=== PATIENT | female | born 1995 | race Caucasian/White ===

== ENCOUNTER → 2018-10-28 15:43 | Outpatient (CLI) | payer BC, SELFPAY ==
--- NOTE | 2018-10-28 15:48 | MR_ITS ---
MR knee RT wo con HISTORY: Right knee pain with effusion. Pain medially. Knot on knee/leg ITS.REASON: PAIN IN RT KNEE, EFFUSION RT KNEE ORDERING PHYSICIAN: Remington Winters MD PATIENT AGE: 23 years Comparison: None TECHNIQUE: Standard multiplanar multiecho sequences are performed without contrast. FINDINGS: The posterior cruciate ligament has an unremarkable appearance. There is slight increased T2 signal of the distal aspect of the ACL with sparsity of the fibers which could be due to prior sprain or old injury. No acute tear evident. The Collateral ligaments, patellar tendon, and quadriceps tendon appear intact. No obvious meniscal tear. The patellar cartilage is preserved. No bone bruise or fractures. There is small joint effusion. No bone bruise. No significant arthritic change. A marker is placed along the medial aspect of the proximal tibia. No soft tissue abnormalities/lesions are apparent at this region. IMPRESSION: 1. Sparsity of the ACL fibers with slight increase in T2 signal which may represent a sprain or old injury. No acute complete tear evident 2. Small knee joint effusion. 3. Otherwise negative MRI of the right knee
== END ==
PROVIDERS: PCP Family Medicine; Visit Provider Family Medicine
DX: M25.461 Effusion, right knee; M25.561 Pain in right knee; S83.206A Unspecified tear of unspecified meniscus, current injury, right knee, initial encounter
CPT/HCPCS: 73721

== ENCOUNTER 2019-04-24 21:08 | Emergency (ER) | payer BC, SELFPAY ==
[2019-04-24 21:14] VITALS: BP 117/76; PULSE 98; RESP 18; TEMP 36.7; O2SAT 99; BMI 20.9
[2019-04-24 21:58] LABS: Basophils % 0.2 % (0.1-2.0); Eosinophils % 0.2 % (0.1-12.0); Hematocrit 43.3 % (37.0-47.0); Lymphocytes # 1.4 K/mm3 (0.7-4.5); Mean Corpuscular HGB Conc 34.7 g/dL (31.8-35.4); Mean Corpuscular Hemoglobin 27.9 pg (27.0-31.2); Mean Corpuscular Volume 80.5 fl (81-99); Mean Platelet Volume 7.3 fl (7.4-10.4); Monocytes # 0.3 K/mm3 (0.1-1.0); Monocytes % 2.4 % (1.7-9.3); Neutrophils # 12.1 K/mm3 (1.8-7.8); Neutrophils % 87.2 % (37.0-80.0); Platelet Count 251 K/mm3 (142-424); Red Blood Count 5.38 M/mm3 (4.20-5.40); Red Cell Distribution Width 11.5 % (11.5-17.5); White Blood Count 13.9 K/mm3 (4.8-10.8)
[2019-04-24 22:00] LABS: MANUAL DIFFERENTIAL MANUAL DIFFERENTIAL (MANUAL DIFF)
--- NOTE | 2019-04-24 22:09 | HMH.EDPREG ---
ED Disposition Clinical Impression: Miscarriage Disposition: Home, Self-Care Condition on Discharge: Good Referrals: Remington Winters MD [Primary Care Provider] - Time of Disposition: 23:47 - Critical Care Critical Care Time: No Attestation: On 04/24/19, the high probability of a clinically significant, sudden or life threatening deterioration of the following system(s) required my full and direct attention, intervention and personal management. The time I documented below is in addition to time spent performing reported procedures but includes the following listed in this critical care notation. Medical Decision Making - Medical Records Medical records reviewed: Yes: I reviewed the patient's medical records. - Darius Inquiry Pt receiving controlled substance: No Darius was queried for this patient: No Vital Signs: 04/24/19 21:14 04/24/19 22:22 04/24/19 23:13 Temperature 98.1 F Temperature Source Oral Pulse Rate [Right Brachial] 98 H 78 68 Respiratory Rate 18 18 16 Blood Pressure [Right Arm] 117/76 118/63 128/70 Blood Pressure Mean [Right Arm] 89 81 89 Blood Pressure Source [Right Arm] Automatic Cuff Automatic Cuff Automatic Cuff Blood Pressure Position [Right Arm] Sitting Sitting Sitting 02 Sat by Pulse Oximetry 99 99 100 Oxygen Delivery Method Room Air Room Air Room Air - Lab Data Lab results reviewed: Yes: I reviewed the patient's lab results. Lab Results 04/24/19 21:47: WBC 13.9 H, RBC 5.38, Hgb 15.0, Hct 43.3, MCV 80.5 L, MCH 27.9, MCHC 34.7, RDW 11.5, Plt Count 251, MPV 7.3 L, Neut % (Auto) 87.2 H, Lymph % (Auto) 10.0, Sunflower % (Auto) 2.4, Eos % (Auto) 0.2, Baso % (Auto) 0.2, Neut # (Auto) 12.1 H, Lymph # (Auto) 1.4, Sunflower # (Auto) 0.3, Eos # (Auto) 0.0, Baso # (Auto) 0.0, Total Counted 100, Neutrophils % (Manual) 90 H, Lymphocytes % (Manual) 7 L, Monocytes % (Manual) 3, Platelet Estimate Normal, RBC Morphology Normal 04/24/19 21:47: Sodium 135 L, Potassium 3.8, Chloride 100, Carbon Dioxide 23, Anion Gap 15.8 H, BUN 10, Creatinine 0.85, Estimated Creat Clear 95, Estimated GFR 82, Est GFR ( Amer) 99, Glucose 109 H, Calcium 9.3, Total Bilirubin 0.8, AST 17, ALT 22, Alkaline Phosphatase 74, Total Protein 7.4, Albumin 4.5, Globulin 2.9, Albumin/Globulin Ratio 1.6 Result diagrams: 04/24/19 21:47 04/24/19 21:47 Orders (Tests/Meds): ED MEDICATIONS Generic Name Dose Route Start Last Admin Trade Name Freq PRN Reason Stop Dose Admin Sodium Chloride 1,000 mls @ 999 mls/hr 04/24/19 22:00 04/24/19 21:49 Sod Chlor 0.9% 1000ml Bag IV 04/24/19 23:00 999 mls/hr .Q1H1M [place] Administration Discontinued Medications Generic Name Dose Route Start Last Admin Trade Name Freq PRN Reason Stop Dose Admin Acetaminophen 1,000 mg 04/24/19 21:24 04/24/19 21:50 Tylenol 500mg Tablet PO 04/24/19 21:25 Not Given ONCE ONE Acetaminophen/Codeine Phosphate 1 flavio 04/24/19 23:44 Acetaminophen W/Codeine #3 Take Home Pack (6) PO 04/24/19 23:45 ONCE ONE Ibuprofen 400 mg 04/24/19 21:24 04/24/19 21:50 Motrin 400mg Tablet PO 04/24/19 21:25 Not Given ONCE ONE Ketorolac Tromethamine 30 mg 04/24/19 21:49 04/24/19 21:49 Toradol 30mg/Ml Vial IV 04/24/19 21:50 30 mg ONCE ONE Administration Morphine Sulfate 4 mg 04/24/19 22:37 04/24/19 22:38 Morphine 4mg/Ml Syringe IV 04/24/19 22:38 4 mg ONCE ONE Administration Ondansetron HCl 4 mg 04/24/19 21:49 04/24/19 21:49 Zofran 4mg/2ml Vial IV 04/24/19 21:50 4 mg ONCE ONE Administration Ondansetron HCl 4 mg 04/24/19 22:37 04/24/19 22:38 Zofran 4mg/2ml Vial IV 04/24/19 22:38 4 mg ONCE ONE Administration Promethazine HCl 1 flavio 04/24/19 23:44 Phenergan 25mg Tablet Take Home Pack (10) PO 04/24/19 23:45 ONCE ONE HPI - General Chief complaint: OB/Uterine Contractions Stated complaint: Possible miscarrage 12 wk Time Seen by Provider: 04/24/19 22:11 Mode of Arrival: F
[2019-04-24 22:10] LABS: Alanine Aminotransferase 22 U/L (12-78); Albumin Level 4.5 gm/dL (3.4-5.0); Albumin/Globulin Ratio 1.6 (1.1-1.8); Alkaline Phosphatase 74 U/L (46-116); Anion Gap 15.8 mEq/L (5-15); Aspartate Amino Transferase 17 U/L (15-37); Bilirubin,Total 0.8 mg/dL (0.2-1.0); Blood Urea Nitrogen 10 mg/dL (7-18); Calcium 9.3 mg/dL (8.5-10.1); Carbon Dioxide 23 mmol/L (21.0-32.0); Chloride 100 mmol/L (98-107); Creatinine Clearance Estimated 95 mL/min (50-200); Creatinine,Serum 0.85 mg/dL (0.55-1.02); Estimated Glomerular Filt Rate 82 ml/min (>60); GFR (African American) 99 ML/MIN (>60); Globulin 2.9 gm/dl (1.3-3.2); Glucose 109 mg/dL (74-106); Potassium 3.8 mmoL/L (3.5-5.1); Sodium 135 mmol/L (136-145); Total Protein,Serum 7.4 gm/dL (6.4-8.2)
[2019-04-24 22:19] LABS: Lymphocytes % 7 % (10-50); Monocytes % 3 % (2-9); Neutrophils % 90 % (42-76); Total Cells Counted 100
[2019-04-24 22:20] LABS: Platelet Estimate Normal; RBC Morphology Normal
[2019-04-24 22:22] VITALS: BP 118/63; PULSE 78; RESP 18; O2SAT 99
--- NOTE | 2019-04-24 22:23 | ED_ITS ---
ED Disposition Clinical Impression: Miscarriage Disposition: Home, Self-Care Condition on Discharge: Good Referrals: Remington Winters MD [Primary Care Provider] - Time of Disposition: 23:47 - Critical Care Critical Care Time: No Attestation: On 04/24/19, the high probability of a clinically significant, sudden or life threatening deterioration of the following system(s) required my full and direct attention, intervention and personal management. The time I documented below is in addition to time spent performing reported procedures but includes the following listed in this critical care notation. Medical Decision Making - Medical Records Medical records reviewed: Yes: I reviewed the patient's medical records. - Darius Inquiry Pt receiving controlled substance: No Darius was queried for this patient: No Vital Signs: 04/24/19 21:14 04/24/19 22:22 04/24/19 23:13 Temperature 98.1 F Temperature Source Oral Pulse Rate [Right Brachial] 98 H 78 68 Respiratory Rate 18 18 16 Blood Pressure [Right Arm] 117/76 118/63 128/70 Blood Pressure Mean [Right Arm] 89 81 89 Blood Pressure Source [Right Arm] Automatic Cuff Automatic Cuff Automatic Cuff Blood Pressure Position [Right Arm] Sitting Sitting Sitting 02 Sat by Pulse Oximetry 99 99 100 Oxygen Delivery Method Room Air Room Air Room Air - Lab Data Lab results reviewed: Yes: I reviewed the patient's lab results. Lab Results 04/24/19 21:47: WBC 13.9 H, RBC 5.38, Hgb 15.0, Hct 43.3, MCV 80.5 L, MCH 27.9, MCHC 34.7, RDW 11.5, Plt Count 251, MPV 7.3 L, Neut % (Auto) 87.2 H, Lymph % (Auto) 10.0, Kingfisher % (Auto) 2.4, Eos % (Auto) 0.2, Baso % (Auto) 0.2, Neut # (Auto) 12.1 H, Lymph # (Auto) 1.4, Kingfisher # (Auto) 0.3, Eos # (Auto) 0.0, Baso # (Auto) 0.0, Total Counted 100, Neutrophils % (Manual) 90 H, Lymphocytes % (Manual) 7 L, Monocytes % (Manual) 3, Platelet Estimate Normal, RBC Morphology Normal 04/24/19 21:47: Sodium 135 L, Potassium 3.8, Chloride 100, Carbon Dioxide 23, A nion Gap 15.8 H, BUN 10, Creatinine 0.85, Estimated Creat Clear 95, Estimated GFR 82, Est GFR ( Amer) 99, Glucose 109 H, Calcium 9.3, Total Bilirubin 0.8, AST 17, ALT 22, Alkaline Phosphatase 74, Total Protein 7.4, Albumin 4.5, Globulin 2.9, Albumin/Globulin Ratio 1.6 Result diagrams: 04/24/19 21:47 04/24/19 21:47 Orders (Tests/Meds): ED MEDICATIONS Generic Name Dose Route Start Last Admin Trade Name Freq PRN Reason Stop Dose Admin Sodium Chloride 1,000 mls @ 999 mls/hr 04/24/19 22:00 04/24/19 21:49 Sod Chlor 0.9% 1000ml Bag IV 04/24/19 23:00 999 mls/hr .Q1H1M [place] Administration Discontinued Medications Generic Name Dose Route Start Last Admin Trade Name Freq PRN Reason Stop Dose Admin Acetaminophen 1,000 mg 04/24/19 21:24 04/24/19 21:50 Tylenol 500mg Tablet PO 04/24/19 21:25 Not Given ONCE ONE Acetaminophen/Codeine Phosphate 1 flavio 04/24/19 23:44 Acetaminophen W/Codeine #3 Take Home Pack (6) PO 04/24/19 23:45 ONCE ONE Ibuprofen 400 mg 04/24/19 21:24 04/24/19 21:50 Motrin 400mg Tablet PO 04/24/19 21:25 Not Given ONCE ONE Ketorolac Tromethamine 30 mg 04/24/19 21:49 04/24/19 21:49
[2019-04-24 23:13] VITALS: BP 128/70; PULSE 68; RESP 16; O2SAT 100
[2019-04-25 00:03] VITALS: BP 122/68; PULSE 63; RESP 16; TEMP 36.7; O2SAT 100
== END 2019-04-25 00:09 | disposition home or self-care (01) ==
PROVIDERS: Emergency Provider Emergency Medicine; PCP Family Medicine
DX: O03.9 Complete or unspecified spontaneous abortion without complication (principal)
CPT/HCPCS: 80053; 85007; 85025; 96365; 96375; 96376; 99283; J2405

== ENCOUNTER → 2021-11-23 20:52 | Outpatient (CLI) | payer OTHER, SELFPAY ==
[2021-11-23 20:55] LABS: Adenovirus,PCR Not Detected (NotDetected); Bordetella Pertussis Not Detected (NotDetected); Chlamydophila Pneumoniae, PCR Not Detected (NotDetected); Coronavirus 19, PCR Not Detected (NotDetected); Coronavirus 229E Not Detected (NotDetected); Coronavirus NL63 Not Detected (NotDetected); Coronavirus OC43 Not Detected (NotDetected); Coronovirus HKU1,PCR Not Detected (NotDetected); Human Metapneumovirus Not Detected (NotDetected); Influenza A, PCR Not Detected (NotDetected); Influenza AH1, 2009 Not Detected (NotDetected); Influenza AH1, PCR Not Detected (NotDetected); Influenza AH3,PCR Not Detected (NotDetected); Influenza B, PCR Not Detected (NotDetected); Mycoplasma Pneumoniae, PCR Not Detected (NotDetected); Parainfluenza 1, PCR Not Detected (NotDetected); Parainfluenza 2, PCR Not Detected (NotDetected); Parainfluenza 3, PCR Not Detected (NotDetected); Parainfluenza 4, PCR Not Detected (NotDetected); Rhinovirus/Enterovirus Not Detected (NotDetected)
[2021-11-23 22:49] LABS: Respiratory Syncytial Virus Detected (NotDetected)
== END ==
PROVIDERS: Visit Provider Nurse Practitioner Family
DX: Z20.822 Contact with and (suspected) exposure to COVID-19 (principal); B97.4 Respiratory syncytial virus as the cause of diseases classified elsewhere
CPT/HCPCS: 87581; 87632; 87798; C9803; U0003; U0005

== ENCOUNTER → 2022-02-07 14:00 | Outpatient (CLI) | payer OTHER, SELFPAY | PROVIDERS: PCP Physician Assistant; Visit Provider Physician Assistant | DX: R00.2 Palpitations (principal) | CPT/HCPCS: 93225; 93226 ==

== ENCOUNTER → 2022-02-07 15:18 | Outpatient (CLI) | payer OTHER, SELFPAY ==
[2022-02-07 17:50] LABS: Basophils # 0.1 K/mm3 (0-0.2); Eosinophils # 0.1 K/mm3 (0.0-0.4); Eosinophils % 1.7 % (0.1-12.0); Hematocrit 38.1 % (37.0-47.0); Hemoglobin 12.1 g/dL (12.2-16.2); Lymphocytes % 35.4 % (10-50); Mean Corpuscular HGB Conc 31.8 g/dL (31.8-35.4); Mean Corpuscular Hemoglobin 26.9 pg (27.0-31.2); Mean Corpuscular Volume 84.8 fl (81-99); Mean Platelet Volume 9.4 fl (7.4-10.4); Monocytes # 0.3 K/mm3 (0.1-1.0); Monocytes % 4.4 % (1.7-9.3); Neutrophils # 3.2 K/mm3 (1.8-7.8); Neutrophils % 57.5 % (37.0-80.0); Platelet Count 295 K/mm3 (142-424); Red Blood Count 4.49 M/mm3 (4.20-5.40); Red Cell Distribution Width 13.6 % (11.5-17.5); White Blood Count 5.6 K/mm3 (4.8-10.8)
[2022-02-07 18:25] LABS: Alanine Aminotransferase 12 U/L (12-78); Albumin Level 4.6 g/dl (3.5-5.0); Albumin/Globulin Ratio 1.9 (1.1-1.8); Alkaline Phosphatase 74 U/L (38-126); Aspartate Amino Transferase 22 U/L (14-36); Bilirubin,Total 0.5 mg/dl (0.2-1.3); Blood Urea Nitrogen 13 mg/dl (7-17); Calcium 9.2 mg/dl (8.4-10.2); Carbon Dioxide 26 mmol/L (22.0-30.0); Chloride 105 mmol/L (98-107); Chol/HDL Ratio 2.9 (1-3.5); Cholesterol 191 mg/dl (140-200); Estimated Glomerular Filt Rate 101 ml/min (>60); GFR (African American) 122 ML/MIN (>60); Globulin 2.4 g/dL (1.3-3.2); Glucose 109 mg/dl (74-100); HDL Cholesterol 66 mg/dl (40-60); Sodium 138 mmol/L (136-145); Triglycerides 62 mg/dl (30-150); VLDL Cholesterol 12 mg/dL (0-40)
[2022-02-07 18:42] LABS: 25-OH Vitamin D, Total 49.6 ng/mL (30-100)
[2022-02-07 18:43] LABS: Direct LDL Cholesterol 95.74 mg/dL (100-129)
== END ==
PROVIDERS: Visit Provider Physician Assistant
DX: Z00.00 Encounter for general adult medical examination without abnormal findings (principal); R07.89 Other chest pain; R00.2 Palpitations
CPT/HCPCS: 80053; 80061; 82306; 83036; 84443; 85025

== ENCOUNTER → 2022-05-31 06:09 | Outpatient (CLI) | payer OTHER, SELFPAY | PROVIDERS: PCP Nurse Practitioner Family; Visit Provider Nurse Practitioner Family | DX: N39.0 Urinary tract infection, site not specified (principal) | CPT/HCPCS: 87086 ==

== ENCOUNTER → 2022-10-04 14:45 | Outpatient (CLI) | payer OTHER, SELFPAY ==
--- NOTE | 2022-10-04 14:52 | XR_ITS ---
FINAL REPORT TECHNIQUE: Chest PA & Lateral CLINICAL HISTORY: Acute cough FINDINGS: 2 views of the chest were performed. The heart size is normal. The mediastinum is within normal limits. There is no acute cardiopulmonary process. There are no pleural effusions. There is no pneumothorax. The bony thorax appears intact. IMPRESSION: No acute cardiopulmonary process. Reviewed, Interpreted and Dictated by Velasquez Steiner MD Transcribed by Danielle Malik Authenticated and [facility]
== END ==
PROVIDERS: PCP Physician Assistant; Visit Provider Physician Assistant
DX: R05.9 Cough, unspecified (principal); Z90.710 Acquired absence of both cervix and uterus
CPT/HCPCS: 71046

== ENCOUNTER → 2023-03-08 13:44 | Outpatient (CLI) | payer OTHER, SELFPAY | PROVIDERS: PCP Nurse Practitioner Family; Visit Provider Nurse Practitioner Family | DX: M79.641 Pain in right hand (principal); M79.89 Other specified soft tissue disorders | CPT/HCPCS: 87070; 87205 ==

== ENCOUNTER → 2023-04-25 08:33 | Outpatient (CLI) | payer OTHER, SELFPAY ==
[2023-04-25 09:20] LABS: Basophils % 0.8 % (0.1-2.0); Eosinophils # 0.1 K/mm3 (0.0-0.4); Eosinophils % 2.3 % (0.1-12.0); Hematocrit 43.3 % (37.0-47.0); Lymphocytes # 1.5 K/mm3 (0.7-4.5); Lymphocytes % 30.9 % (10-50); Mean Corpuscular HGB Conc 32.3 g/dL (31.8-35.4); Mean Corpuscular Hemoglobin 27.3 pg (27.0-31.2); Mean Corpuscular Volume 84.5 fl (81-99); Mean Platelet Volume 8.3 fl (7.4-10.4); Monocytes # 0.2 K/mm3 (0.1-1.0); Monocytes % 4.2 % (1.7-9.3); Neutrophils % 61.9 % (37.0-80.0); Platelet Count 230 K/mm3 (142-424); Red Blood Count 5.13 M/mm3 (4.20-5.40); Red Cell Distribution Width 12.9 % (11.5-17.5); White Blood Count 4.8 K/mm3 (4.8-10.8)
[2023-04-25 09:33] LABS: Hemoglobin A1C 5.2 % (4.0-6.0)
[2023-04-25 09:47] LABS: Alanine Aminotransferase 12 U/L (12-78); Albumin Level 4.3 g/dl (3.5-5.0); Alkaline Phosphatase 65 U/L (38-126); Anion Gap 13.2 mEq/L (5-15); Aspartate Amino Transferase 23 U/L (14-36); Bilirubin,Total 0.7 mg/dl (0.2-1.3); Blood Urea Nitrogen 12 mg/dl (7-17); Calcium 8.9 mg/dl (8.4-10.2); Carbon Dioxide 28 mmol/L (22.0-30.0); Chloride 104 mmol/L (98-107); Cholesterol 156 mg/dl (140-200); Estimated Glomerular Filt Rate 100 ml/min (>60); GFR (African American) 121 ML/MIN (>60); Globulin 2.1 g/dL (1.3-3.2); Glucose 104 mg/dl (74-100); HDL Cholesterol 52 mg/dl (40-60); Potassium 4.2 mmoL/L (3.5-5.1); Sodium 141 mmol/L (136-145); Total Protein,Serum 6.4 g/dl (6.3-8.2); Triglycerides 48 mg/dl (30-150); VLDL Cholesterol 10 mg/dL (0-40)
[2023-04-25 09:58] LABS: Direct LDL Cholesterol 84.26 mg/dL (100-129)
[2023-04-25 10:04] LABS: 25-OH Vitamin D, Total 52.6 ng/mL (30-100)
[2023-04-25 10:18] LABS: Thyroid Stimulating Hormone 1.63 uIU/mL (0.465-4.68)
[2023-04-26 11:22] LABS: FSH 8.5 mIU/mL (.); Insulin Level Total 5.3 uIU/mL (2.6-24.9)
== END ==
PROVIDERS: PCP Physician Assistant; Visit Provider Obstetrics & Gynecology Gynecology
DX: Z00.01 Encounter for general adult medical examination with abnormal findings (principal); N95.1 Menopausal and female climacteric states
CPT/HCPCS: 36415; 80053; 80061; 82306; 83001; 83036; 83525; 84443; 85025

== ENCOUNTER 2024-05-11 10:24 | Outpatient (CLI) | payer OTHER, SELFPAY ==
--- NOTE | 2024-05-11 10:26 | XR_ITS ---
FINAL REPORT CLINICAL HISTORY: Possible foreign body in right first digit. Pain into wrist. COMPARISON: None FINDINGS: Three views of the right hand show no evidence of acute displaced fracture or dislocation of the visualized bony architecture. The joint spaces appear normal. There is no evidence of radiopaque foreign body in the first digit. IMPRESSION: Unremarkable exam. Reviewed, Interpreted and Dictated by Grace Tanner MD Transcribed by Dianna Tapia Authenticated and [facility]
== END 2024-05-11 23:59 | disposition home or self-care (01) ==
LOC: RAD 10:25
PROVIDERS: PCP Physician Assistant; Visit Provider Physician Assistant
DX: M79.641 Pain in right hand (principal); M79.89 Other specified soft tissue disorders
CPT/HCPCS: 73130

== ENCOUNTER 2024-05-25 10:41 | Outpatient (CLI) | payer OTHER, SELFPAY ==
--- NOTE | 2024-05-25 10:42 | CT_ITS ---
FINAL REPORT TECHNIQUE: Axial images were obtained from the lung apex to the mid abdomen by computed tomography. Coronal reformatted images were obtained. This study was performed with techniques to keep radiation doses as low as reasonably achievable, (ALARA). Individualized dose reduction techniques using automated exposure control or adjustment of mA and/or kV according to the patient''s size were employed. CLINICAL HISTORY: knot on right chest, pectus deformity on CXR COMPARISON: None FINDINGS: No mediastinal mass or adenopathy is identified. No axillary mass or adenopathy is seen.There is no pericardial or pleural effusion. No pulmonary mass or suspicious nodule is identified. No localized pulmonary inflammatory process is noted. There is a mild pectus excavatum deformity with anterior bowing of the anteromedial right chest wall. Limited images of the upper abdomen are unremarkable. IMPRESSION: Mild pectus excavatum deformity as above. Reviewed, Interpreted and Dictated by Julian Gibson III, MD Transcribed by Dianna Tapia Authenticated and [facility]
--- NOTE | 2024-05-25 15:43 | MR_ITS ---
FINAL REPORT CLINICAL HISTORY: right thumb pain, possible FB COMPARISON: None FINDINGS: Multiplanar MR imaging of the right hand was performed without contrast. The bony structures are intact without evidence of fracture or bone marrow edema. There is a cyst present in the head of the fifth metacarpal. The flexor and extensor tendons are intact. The musculature is intact. There is a 4 mm nodule in the anterior soft tissues of the thumb, superficial to the flexor houses longus tendon, just proximal to the inner phalangeal joint, nonspecific. This may represent a cyst versus a small soft tissue mass. IMPRESSION: 4 mm nodule in the anterior soft tissues of the thumb as described, which may represent a cyst or a small soft tissue mass. No evidence of bone marrow edema, or abnormality of the ligaments or tendons. Reviewed, Interpreted and Dictated by Julian Gibson III, MD Transcribed by Pricila Oakes Authenticated and [facility]
== END 2024-05-25 23:59 | disposition home or self-care (01) ==
LOC: RAD 10:42
PROVIDERS: PCP Physician Assistant; Visit Provider Physician Assistant
DX: R07.89 Other chest pain (principal); M79.89 Other specified soft tissue disorders
CPT/HCPCS: 71250; 73218

== ENCOUNTER 2024-06-23 12:47 | Outpatient (CLI) | payer OTHER, SELFPAY ==
--- NOTE | 2024-06-23 12:47 | CA_ITS ---
APPROVED REPORT EXAM: Comprehensive 2D, Doppler, and color-flow Echocardiogram Lane Attendant: Devi Baltazar CRT Ht: 5 ft 6 in Wt: 144lbs BSA: 1.74 BP: 128/70 mmHg Indications: pectus excavatum, sob 2D Dimensions Left Atrium 2.54 cm LVEF ([facility]) 54.00 % LVOT 1.81 cm (M/F) 1.5-2.5 LV Volume 88.00 mL LA Volume 22.90 mL LA Volume Index 13.20 mL/m2 (M/F) 16-34 EF AP4 52.20 % EF AP2 58.4 % EF BP 54.0 % GL Strain -21.2 % M-Mode Dimensions RVDd 1.97 cm (0.9-2.6) LVDd 4.81 cm (3.5-5.7) Ao Diam 3.28 cm (2.0-3.7) LVDs 3.16 cm (3.5-5.7) IVSd 1.03 cm (0.6-1.1) PWd 0.75 cm (0.6-1.1) EF (Teich) 63.20% FS 34.30% EDV (Teich) 108.00 mL TAPSE 2.38 (<1.7) ESV (Teich) 39.70 mL LV Diastology E Decel Time 169 (160-240 msec) E/A Ratio 1.08 MED E' 11.8 (>= 7 cm/sec) MED A' 9.40 cm/s E'/MED E' Ratio 6.36 (<= 14) LAT E' 15.8 (>= 10 cm/sec) LAT A' 10.80 cm/s E/LAT E' Ratio 4.75 (<= 14) Aortic Valve AoV Peak Jhonny. 116.0 (50-130 cm/s) AO Peak GR. 5.40 mmHg Mitral Valve MV E Max Jhonny. 75.0 (40-130 cm/s) MV A Velocity 69.0 (40-130 cm/s) E/A Ratio 1.08 MV Decel. Time 169 (160-240 ms) Tricuspid Valve TR P. Velocity 144.00 cm/s RAP Estimate 10.00 mmHg RVSP 18.30 mmHg Left Ventricle The left ventricle is normal size. The left ventricular systolic function is normal. The left ventricular ejection fraction is within the normal range. There is normal left ventricular wall thickness. There is normal LV segmental wall motion. The left ventricular diastolic function is normal. LVEF is 55%. Right Ventricle The right ventricle is normal size. The right ventricular systolic function is normal. Atria The left atrium size is normal. The right atrium size is normal. There is no Doppler evidence of interatrial shunt. Aortic Valve The aortic valve opens well. There is no aortic valvular stenosis. No aortic regurgitation is present. Mitral Valve The mitral valve is normal in structure. No evidence of mitral valve stenosis. There is no mitral valve regurgitation noted. Tricuspid Valve The tricuspid valve leaflets are thin and pliable. Trace tricuspid regurgitation. There is insufficient TR jet to estimate RVSP. Pulmonic Valve The pulmonary valve is normal in structure. Trace pulmonic regurgitation. Great Vessels The aortic root is normal in size. The ascending aorta is not well-visualized. IVC is normal in size and collapses >50% with inspiration. Pericardium There is no pericardial effusion. Other Information Study Quality: Adequate Conclusion Normal biventricular systolic function. No significant valvular stenosis or regurgitation. Electronically signed by : Xochitl Hayes MD 06/23/2024 23:47:49
== END 2024-06-23 23:59 | disposition home or self-care (01) ==
LOC: RT 12:47
PROVIDERS: PCP Physician Assistant; Visit Provider Physician Assistant
DX: R22.2 Localized swelling, mass and lump, trunk (principal)
CPT/HCPCS: 93306

== ENCOUNTER 2024-06-30 09:00 | Outpatient (CLI) | payer OTHER, SELFPAY ==
--- NOTE | 2024-06-30 09:03 | XR_ITS ---
FINAL REPORT CLINICAL HISTORY: Rt Thumb Pain, thorn in thumb several mos ago, knot still there FINDINGS: Left hand Three views were obtained. There is no acute fracture or dislocation. The joint spaces appear normal. No soft tissue abnormality is identified. No foreign body is identified. IMPRESSION: No acute process. Reviewed, Interpreted and Dictated by Julian Gibson III, MD Transcribed by Ashlee Mccarty Authenticated and [facility]
== END 2024-06-30 23:59 | disposition home or self-care (01) ==
LOC: RAD 09:00
PROVIDERS: PCP Physician Assistant; Visit Provider Orthopaedic Surgery
DX: M79.89 Other specified soft tissue disorders (principal)
CPT/HCPCS: 73130

== ENCOUNTER 2024-09-04 11:02 | Outpatient (CLI) | payer OTHER, SELFPAY ==
[2024-09-04 11:22] VITALS: BMI 21.7
[2024-09-04 11:45] LABS: Chloride 106 mmol/L (98-107); Potassium 4.1 mmoL/L (3.5-5.1); Sodium 137 mmol/L (136-145)
[2024-09-04 11:48] LABS: Anion Gap 11.1 mEq/L (5-15); Blood Urea Nitrogen 14 mg/dl (7-17); Carbon Dioxide 24 mmol/L (22.0-30.0); Creatinine Clearance Estimated 100 mL/min (50-200); Estimated Glomerular Filt Rate 85 ml/min (>60); GFR (African American) 103 ML/MIN (>60)
[2024-09-04 11:49] LABS: Calcium 9.2 mg/dl (8.4-10.2); Glucose 94 mg/dl (74-100)
[2024-09-04 11:52] LABS: Basophils # 0.1 K/mm3 (0-0.2); Eosinophils # 0.1 K/mm3 (0.0-0.4); Eosinophils % 1.3 % (0.1-12.0); Hematocrit 40.9 % (37.0-47.0); Hemoglobin 13.7 g/dL (12.2-16.2); Lymphocytes # 2.1 K/mm3 (0.7-4.5); Lymphocytes % 42.5 % (10-50); Mean Corpuscular HGB Conc 33.6 g/dL (31.8-35.4); Mean Corpuscular Hemoglobin 28.7 pg (27.0-31.2); Mean Corpuscular Volume 85.5 fl (81-99); Mean Platelet Volume 8.1 fl (7.4-10.4); Monocytes # 0.3 K/mm3 (0.1-1.0); Monocytes % 5.3 % (1.7-9.3); Neutrophils # 2.5 K/mm3 (1.8-7.8); Platelet Count 192 K/mm3 (142-424); Red Blood Count 4.78 M/mm3 (4.20-5.40)
== END 2024-09-04 23:59 | disposition home or self-care (01) ==
LOC: PREOP 11:04
PROVIDERS: Nurse Anesthetist, Certified Registered; PCP Physician Assistant; Visit Provider Orthopaedic Surgery
DX: Z01.812 Encounter for preprocedural laboratory examination (principal)
CPT/HCPCS: 80048; 85025

== ENCOUNTER 2024-09-07 11:24 | Day surgery (SDC) | payer OTHER, SELFPAY ==
[2024-09-04 11:20] VITALS: BMI 21.7
[2024-09-07] VITALS (9 sets, daily range): BP systolic 121–147; BP diastolic 69–92; PULSE 70–97; RESP 14–19; TEMP 36.3–36.9; O2SAT 99–100
--- NOTE | 2024-09-07 12:15 | EXP.ANES.CKL ---
[facility] Disclaimer: The information contained in this section may have been updated after the patient was seen, as this information can be updated by other users. Medical History Cough Surgical History (Updated 09/04/24 @ 11:11 by Parker Luque RN) History of wisdom tooth extraction History of delivery History of D&C Status post hysterectomy Family History (Updated 09/04/24 @ 11:11 by Parker Luque RN) Other Family history of cancer Social History (Updated 09/04/24 @ 11:12 by Parker Luque RN) Smoking Status: Never smoker alcohol intake: never substance use type: denies use current occupational status: employed and unemployed Travel in the last 8 weeks: None housing: house [facility] Anesthesia Checklist Patient Identification Patient Identification: Arm Band and Verbal (Name & ) Structural Data Admitted From: Home Planned Operative Procedure/s: Excision soft tissue mass RT thumb Consent for Planned Operative Procedure(s) Verified: Yes Verified Documents: Surgical Consent and History and Physical NPO Status Verified Time NPO: 22:30 Chart Verification Results Verified: CBC, BMP and Chest Xray Additional verifications Patient : No Cardiovascular Assessment Heart Sounds: S1 & S2 Pulse Rhythm: Irregular Airway Assessment Mallampati Score:: Class II C-Spine Mobility Assessed: Yes (FROM) TMJ Mobility Assessed: Yes Dentition: Good Dentition (Nothing loose per pt.) Neurological Assessment Level of Consciousness: Awake, Alert, Appropriate and Follows Commands Hx Seizures: No Numbness or tingling in extremities: No Anesthesia Plan Anesthesia Risk discussed: Yes Anesthesia Plan: Verified ASA Class: I Anesthesia Type: General
[2024-09-07] MEDS: CEFAZOLIN SODIUM 2 GM in 0.9 % SODIUM CHLORIDE 100 ML IV (13:22)
[2024-09-07] MEDS: LIDOCAINE 1% W/EPI 1:100,000 20ML VIAL 20 ML (13:22)
--- NOTE | 2024-09-07 13:35 | EXP.OP.NOTE ---
Date of procedure: 09/07/24 Pre-op Diagnosis:: Soft tissue mass right thumb Post-op Diagnosis:: Cyst with foreign body, thorn Procedure performed:: Excision cyst right thumb with removal of foreign body Surgeon:: Philip Florez DO Presentation Manager(s):: Maico GLASGOW BACTERIOLOGY RESEARCH ASSISTANT:: Bertrand Prescott Anesthesia: MAC and local Estimated blood loss (mL): 0 Clinical Note:: 0.6 cm thorn removed from volar aspect right thumb Operative findings:: Thorn retained on the flexor surface of the right thumb with cyst Operative note:: Patient was identified preoperatively. Right thumb marked with yes my initials. Transferred operative suite. Placed upon operating bed. Patient was given sedation. Right upper extremity was then prepped and draped normal sterile fashion. Once prepped and draped final operative timeout performed to identify proper patient procedure and extremity. Everyone involved the case agreed. There were no counter indications to beginning. She did receive preoperative antibiotics Local anesthesia was infiltrated around the planned incision and Esmarch was used to exsanguinate the extremity. Pneumatic tourniquet inflated 250 mmHg. Skin knife is used to incise through skin. Careful dissection was taken down on the volar aspect of the thumb. The tissues looked abnormal. There is a cystic type lesion around the incision just proximal to the IP joint. Dissection around the cyst was carefully undertaken bluntly with the scissors and then evidence of a thorn was present within the cyst. Careful dissection is taken down to remove the thorn and debride the cyst. Irrigation performed skin then closed with nylon stitch sterile dressing placed patient waken sedation taken recovery in stable condition. Condition: stable Disposition: PACU Complications:: None apparent
--- NOTE | 2024-09-07 13:46 | EXP.ANES.I ---
[facility] Anesthesia Record Part I Anesthesia Record I Intake, IV Amount: 300 Hydration: Adequate Estimated blood loss (mL): 1 Urine output (mL): 0 Blood Products used (#): none Blood Pressure: 132/78 SaO2: 99 Pulse Rate: 94 Airway Patency: Patent Respiratory Rate: 14 Temperature: 97.3 F Patient is:: Drowsy and Stable Stable to PACU at:: 13:40
[2024-09-08 07:26] VITALS: BP 134/90; PULSE 70; RESP 19; TEMP 36.5; O2SAT 100
--- NOTE | 2024-09-08 07:26 | EXP.ANES.II ---
[facility] Anesthesia Record Part II Anesthesia Record Part II Discharge Time: 14:10 Destination: Surgical Day Care (OP Surgery) PACU nurse assessment reviewed?: Yes Patient Condition:: Good Anesthesia Complications:: None Swallowing reflex intact?: Yes Airway Patency: Patent Cyanosis?: No Blood Pressure: 134/90 SaO2: 100 Respiratory Rate: 19 Pulse Rate: 70 Temperature: 97.7 F Mental Status: Alert & Oriented Pain level:: 0 Nausea and/or vomitting:: None Intake, IV Amount: 0 Hydration: Adequate
== END 2024-09-07 14:41 | disposition home or self-care (01) ==
PROVIDERS: PCP Physician Assistant; Visit Provider Orthopaedic Surgery
PROC: (CPT 26160; principal; 2024-09-07 13:15)
DX: S60.351A Superficial foreign body of right thumb, initial encounter (principal); M71.341 Other bursal cyst, right hand
CPT/HCPCS: 26160; 96374; J0690; J1100; J2250; J2405; J3010